=== PATIENT | female | born 1980 ===

== ENCOUNTER 2025-01-21 21:23 | Emergency (ER) | payer MEDICAID ==
[2025-01-21 22:36] LABS: BASOPHILS PERCENT AUTO 0.2 % (0.0-1.0); HEMOGLOBIN 12.5 g/dL (12.0-16.0); LYMPHOCYTES PERCENT AUTO 17.9 % (20.5-50.1); MEAN CORPUSCULAR HEMOGLOBIN 31.6 pg (27.0-34.0); MEAN CORPUSCULAR HGB CONC 35.7 g/dL (33.0-35.0); MEAN CORPUSCULAR VOLUME 88.6 fL (80-100); MONOCYTES PERCENT AUTO 7.2 % (2-8); NEUTROPHILS PERCENT AUTO 71.7 % (42.2-75.2); PLATELET COUNT,PLT 281 10^3/uL (150-450); RED BLOOD CELL COUNT 3.95 10^6/uL (4.2-5.4); WHITE BLOOD CELL COUNT,WBC 14.1 10^3/uL (5.0-10.0)
[2025-01-21] MEDS: Ondansetron 4 MG/2 ML SDV IVPUSH ONE (22:50)
[2025-01-21] MEDS: Sodium Chloride 0.9% 1,000 ML IV ONE (22:50)
[2025-01-21] MEDS: HYDROmorphone 1 MG/ML Syringe IVPUSH ONE (22:50)
[2025-01-21 22:52] LABS: A/G RATIO 1.1; ALANINE AMINOTRANSFERASE,ALT 18 U/L (14-59); ALBUMIN 3.7 g/dL (3.4-5.0); ALKALINE PHOSPHATASE 96 U/L (46-116); ANION GAP 14.1 mEq/L (7-13); ASPARTATE AMNIOTRANSFERASE,AST 12 U/L (15-37); BILIRUBIN TOTAL 1.8 mg/dL (0.2-1.0); BLOOD UREA NITROGEN,BUN 12 mg/dL (7-18); BUN/CREATININE RATIO 12.5 (No establ ref range); CALCIUM 8.8 mg/dL (8.5-10.1); CARBON DIOXIDE,CO2 27 mmol/L (21-32); CHLORIDE,CL 101 mmol/L (98-107); CREATININE 0.96 mg/dL (0.55-1.02); EST CRCL DRUG DOSING (CG) 70.01 mL/min; ESTIMATED GFR 75 mL/min (>=60); GLUCOSE RANDOM 101 mg/dL (70-99); POTASSIUM,K 4.1 mmol/L (3.5-5.1); PROTEIN TOTAL,TP 7.2 g/dL (6.4-8.2); SODIUM,NA 138 mmol/L (136-145)
[2025-01-21 22:55] LABS: APPEARANCE,URINE SLIGHTLY CLOUDY (CLEAR); BILIRUBIN,URINE NEGATIVE (NEGATIVE); COLOR,URINE DARK YELLOW (YELLOW); GLUCOSE,URINE NEGATIVE (NEGATIVE); KETONES,URINE NEGATIVE (NEGATIVE); LEUKOCYTE ESTERASE,URINE SMALL (NEGATIVE); NITRITE,URINE NEGATIVE (NEGATIVE); OCCULT BLOOD,URINE TRACE-INTACT (NEGATIVE); PROTEIN,URINE 30 (NEGATIVE); UROBILINOGEN,URINE 0.2 mg/dL (0.2-1.0)
[2025-01-21 22:55] LABS: LACTIC ACID 0.8 mmol/L (0.4-2.0)
[2025-01-21 22:57] LABS: HCG QUALITATIVE,SERUM NEGATIVE (NEGATIVE)
[2025-01-21 23:02] LABS: BACTERIA,URINE FEW /HPF (0-FEW/HPF); EPITHELIAL CELLS,URINE MANY /HPF (NOT SEEN); RBC,URINE 0-5 /HPF (0-5)
[2025-01-21 23:03] LABS: AMORPHOUS SEDIMENT,URINE FEW /HPF (NOT SEEN); MUCUS,URINE MANY /LPF (NOT SEEN)
[2025-01-21] MEDS: Iopamidol 612 MG/ML 100 ML Bottle IVPUSH ONE (23:34)
[2025-01-22] MEDS ORDERED: cefTRIAXone 1 GM Vial IM ONE (00:30)
[2025-01-22] MEDS: metroNIDAZOLE/Normal Saline 500 MG in Premix Bag 1 BAG IV ONE (00:42)
[2025-01-22] MEDS: cefTRIAXone 1 GM Vial IVPUSH ONE (00:44)
== END 2025-01-22 02:23 | disposition home or self-care (01) ==
LOC: DL.ED 21:23
DX: N39.0 Urinary tract infection, site not specified (principal); R11.2 Nausea with vomiting, unspecified
CPT/HCPCS: 36415; 74177; 80053; 81001; 83605; 83690; 84703; 85025; 87086; 96361; 96365; 96375; 99284; 99284-25; J0696; J1171; J1836; J2405; J7030; Q9967

== ENCOUNTER 2025-05-08 14:26 | Emergency (ER) | payer MEDICAID ==
[2025-05-08] MEDS ORDERED: Sodium Chloride 0.9% 10 ML Syringe FLUSH PRN (15:02)
[2025-05-08] MEDS: Ondansetron 4 MG/2 ML SDV IVPUSH ONE (15:21)
[2025-05-08 15:26] LABS: APPEARANCE,URINE CLEAR (CLEAR); GLUCOSE,URINE NEGATIVE (NEGATIVE); OCCULT BLOOD,URINE NEGATIVE (NEGATIVE)
[2025-05-08 15:30] LABS: BASOPHILS PERCENT AUTO 0.3 % (0.0-1.0); EOSINOPHILS PERCENT AUTO 0.0 % (1.0-3.0); LYMPHOCYTES PERCENT AUTO 25.4 % (20.5-50.1); MONOCYTES PERCENT AUTO 7.0 % (2-8); NEUTROPHILS PERCENT AUTO 67.3 % (42.2-75.2); PLATELET COUNT,PLT 305 10^3/uL (150-450); RED BLOOD CELL COUNT 4.28 10^6/uL (4.2-5.4); WHITE BLOOD CELL COUNT,WBC 7.5 10^3/uL (5.0-10.0)
[2025-05-08 15:40] LABS: EPITHELIAL CELLS,URINE MODERATE /HPF (NOT SEEN)
[2025-05-08 15:52] LABS: LACTIC ACID 0.8 mmol/L (0.4-2.0)
[2025-05-08 15:58] LABS: A/G RATIO 1.2; ALANINE AMINOTRANSFERASE,ALT 20.0 U/L (14-59); ASPARTATE AMNIOTRANSFERASE,AST 13.0 U/L (15-37); BILIRUBIN TOTAL 1.6 mg/dL (0.2-1.0); BLOOD UREA NITROGEN,BUN 8.0 mg/dL (7-18); CARBON DIOXIDE,CO2 27.0 mmol/L (21-32); CHLORIDE,CL 104.0 mmol/L (98-107); CREATININE 0.65 mg/dL (0.55-1.02); EST CRCL DRUG DOSING (CG) 99.38 mL/min; GLUCOSE RANDOM 129.0 mg/dL (70-99); POTASSIUM,K 3.1 mmol/L (3.5-5.1); PROTEIN TOTAL,TP 7.3 g/dL (6.4-8.2); SODIUM,NA 139.0 mmol/L (136-145)
[2025-05-08 16:00] LABS: ESTIMATED GFR 111.0 mL/min (>=60)
[2025-05-08] MEDS: Iopamidol 612 MG/ML 100 ML Bottle IVPUSH ONE (16:04)
[2025-05-08] MEDS: Potassium Chloride 10 MEQ Tab.ER PO ONE (19:36)
[2025-05-08] MEDS: Ketorolac 30 MG/ML SDV IVPUSH ONE (19:37)
== END 2025-05-08 19:50 | disposition home or self-care (01) ==
LOC: DL.ED 14:26
DX: K59.03 Drug induced constipation (principal); K31.84 Gastroparesis; E87.6 Hypokalemia; Z90.49 Acquired absence of other specified parts of digestive tract
CPT/HCPCS: 36415; 74177; 80053; 81001; 81025; 83605; 85025; 87040; 96374; 96375; 99284; A9270; J1885; J2405; J2765; Q9967

== ENCOUNTER 2025-07-24 19:20 | Emergency (ER) | payer MEDICAID ==
[2025-07-24] MEDS ORDERED: Sodium Chloride 0.9% 10 ML Syringe FLUSH PRN (19:30)
[2025-07-24 19:41] LABS: BASOPHILS PERCENT AUTO 0.4 % (0.0-1.0); EOSINOPHILS PERCENT AUTO 0.0 % (1.0-3.0); LYMPHOCYTES PERCENT AUTO 27.9 % (20.5-50.1); MONOCYTES PERCENT AUTO 8.6 % (2-8); NEUTROPHILS PERCENT AUTO 63.1 % (42.2-75.2); PLATELET COUNT,PLT 316 10^3/uL (150-450); RED BLOOD CELL COUNT 4.15 10^6/uL (4.2-5.4); WHITE BLOOD CELL COUNT,WBC 7.3 10^3/uL (5.0-10.0)
[2025-07-24 19:59] LABS: INR 0.9 (0.9-1.2); PTT,PARTIAL THROMBOPLSTIN TIME 25.2 SEC (22.0-34.0)
[2025-07-24 20:00] LABS: D-DIMER QUANTITATIVE < 100 ng/mL (0-400)
[2025-07-24 20:04] LABS: A/G RATIO 1.2; ALANINE AMINOTRANSFERASE,ALT 19.0 U/L (14-59); ASPARTATE AMNIOTRANSFERASE,AST 16.0 U/L (15-37); BILIRUBIN TOTAL 1.3 mg/dL (0.2-1.0); BLOOD UREA NITROGEN,BUN 8.0 mg/dL (7-18); CARBON DIOXIDE,CO2 26.0 mmol/L (21-32); CHLORIDE,CL 105.0 mmol/L (98-107); CREATININE 0.87 mg/dL (0.55-1.02); EST CRCL DRUG DOSING (CG) 74.25 mL/min; GLUCOSE RANDOM 72.0 mg/dL (70-99); POTASSIUM,K 3.6 mmol/L (3.5-5.1); PROTEIN TOTAL,TP 7.7 g/dL (6.4-8.2); SODIUM,NA 140.0 mmol/L (136-145)
[2025-07-24 20:05] LABS: ESTIMATED GFR 84.0 mL/min (>=60)
== END 2025-07-24 20:21 | disposition home or self-care (01) ==
LOC: DL.ED 19:20
DX: R09.1 Pleurisy (principal); Z90.49 Acquired absence of other specified parts of digestive tract
CPT/HCPCS: 36415; 71046; 80053; 83690; 83735; 84484; 85025; 85379; 85610; 85730; 93005; 99285; A9270